=== PATIENT | female | born 1985 ===

== ENCOUNTER 2019-02-22 17:32 | Emergency (ER) | payer OTHER ==
[2019-02-22] MEDS ORDERED: Sodium Chloride 0.9% 1,000 ML IV STA (18:22)
--- NOTE | 2019-02-22 18:25 | ED PDOC ---
HPI: Abdomen Time Seen by Provider: 02/22/19 17:53 Chief Complaint (Nursing): Abdominal Pain Chief Complaint (Provider): Abdominal Pain History Per: Patient History/Exam Limitations: no limitations Onset/Duration Of Symptoms: Days Current Symptoms Are (Timing): Still Present Additional Complaint(s): 33 y/o female with no significant PMHx presents to the ED for evaluation of abdominal pain since yesterday. Patient reports pain starts in the lower abdomen and radiates up to the epigastric area. Patient states pain is associated with diarrhea and vomiting. Patient denies any changes in diet and urinary symptoms. Patient notes pain does not worsen with foods or spicy foods. PMD: Minerva Gastelum Past Medical History Reviewed: Historical Data, Nursing Documentation, Vital Signs Vital Signs: Last Vital Signs Temp 97.8 F 02/22/19 17:37 Pulse 65 02/22/19 17:37 Resp 20 02/22/19 17:37 BP 102/65 02/22/19 17:37 Pulse Ox 99 02/22/19 17:37 - Medical History PMH: No Chronic Diseases - Surgical History Surgical History: No Surg Hx - Family History Family History: States: Unknown Family Hx - Social History Current smoker - smoking cessation education provided: No Alcohol: None Drugs: Denies - Home Medications Home Medications: Ambulatory Orders Medication Instructions Recorded Famotidine [Pepcid] 20 mg PO Q12 #14 tab 02/23/19 - Allergies Allergies/Adverse Reactions: Allergies Allergy/AdvReac Type Severity Reaction Status Date / Time aspirin Allergy RASH Verified 02/22/19 17:37 Review of Systems ROS Statement: Except As Marked, All Systems Reviewed And Found Negative Gastrointestinal: Positive for: Vomiting, Abdominal Pain, Diarrhea Genitourinary Female: Negative for: Dysuria, Frequency, Hematuria Physical Exam - Reviewed Nursing Documentation Reviewed: Yes Vital Signs Reviewed: Yes - Physical Exam Appears: Positive for: No Acute Distress Head Exam: Positive for: ATRAUMATIC, NORMOCEPHALIC Skin: Positive for: Normal Color, Warm, Dry Eye Exam: Positive for: Normal appearance, EOMI, PERRL Neck: Positive for: Normal, Painless ROM Cardiovascular/Chest: Positive for: Regular Rate, Rhythm. Negative for: Murmur Respiratory: Positive for: Normal Breath Sounds. Negative for: Respiratory Distress Gastrointestinal/Abdominal: Positive for: Soft, Tenderness (Mild diffuse abdominal tenderness) Back: Positive for: Normal Inspection. Negative for: L CVA Tenderness, R CVA Tenderness, Vertebral Tenderness Extremity: Positive for: Normal ROM. Negative for: Pedal Edema, Deformity Neurological/Psych: Positive for: Awake, Alert, Oriented (x3). Negative for: M otor/Sensory Deficits - Laboratory Results Result Diagrams: 02/22/19 18:53 02/22/19 18:53 - ECG O2 Sat by Pulse Oximetry: 99 (RA) Pulse Ox Interpretation: Normal Medical Decision Making Medical Decision Making: Time: 1821 Impression: Abdominal Pain Plan: -- CMP -- Lipase -- CBC with Differentials -- Sodium Chloride IV 999 mls/hr -- Pepcid 20 mg IVP -- Urine Culture -- Urinalysis Time: 1899 -- Patient endorsed to Dr. Pan, pending ER workup, re-evaluation and final ER disposition. Scribe Attestation: Documented by Boo Davis, acting as a scribe for Fern Terry MD. Provider Scribe Attestation: All medical record entries made by the Scribe were at my direction and personally dictated by me. I have reviewed the chart and agree that the record accurately reflects my personal performance of the history, physical exam, medical decision making, and the department course for this patient. I have also personally directed, reviewed, and agree with the discharge instructions and disposition. Disposition - Clinical Impression Clinical Impression: Ovarian cyst - Patient ED Disposition Is Patient to be Admitted: Transfer of Care - Disposition [facility] Disposition: Transfer of Care Disposition Time: 19:00 Condition: STABLE Prescriptions: Famotidine [Pepcid] 20 mg PO Q12 #14 tab Instructions: Ovarian Cysts Forms: [employer] (Hebrew), [employer] ED School/Work Excuse Print Language: [place] Patient Signed Over To: Domenic Pan Handoff Comments: pending ER workup, re-evaluation and final ER disposition.
[2019-02-22] MEDS ORDERED: Iohexol 240 (50 ml) PO ONE (18:51)
[2019-02-22 18:58] LABS: BASO % 0.6 % (0.0-2.0); EOS # 0.1 K/uL (0.0-0.7); HEMOGLOBIN 10.7 g/dL (12.0-16.0); LYMPH # 2.2 K/uL (1.0-4.3); LYMPH % 32.2 % (20.0-40.0); MEAN CELL VOLUME 85.2 fl (81.0-99.0); MEAN CORPUSCULAR HEMOGLOBIN 28.3 pg (27.0-31.0); MEAN CORPUSCULAR HGB CONC 33.3 g/dL (33.0-37.0); MEAN PLATELET VOLUME 7.8 fl (7.2-11.7); MONO # 0.5 K/uL (0.0-0.8); MONO % 7.6 % (0.0-10.0); NEUT # 4.1 K/uL (1.8-7.0); NEUT % 58.6 % (50.0-75.0); NRBC % 0.1 % (0.0-0.0); RBC 3.77 Mil/uL (3.80-5.20); RED CELL DISTRIBUTION WIDTH 14.4 % (11.5-14.5)
[2019-02-22 19:06] LABS: SQUAMOUS EPITHIAL 3 /hpf (0-5); URINE BACTERIA RARE (<OCC); URINE BILIRUBIN NEGATIVE (NEGATIVE); URINE BLOOD LARGE (NEGATIVE); URINE COLOR YELLOW (YELLOW); URINE GLUCOSE (UA) NEG (NEGATIVE); URINE LEUKOCYTE ESTERASE NEG Leu/uL (Negative); URINE PROTEIN 30 mg/dL (NEGATIVE); URINE UROBILINOGEN 0.2-1.0 mg/dL (0.2-1.0)
[2019-02-22 19:07] LABS: URINE CLARITY SLIGHT-CLOUDY (Clear)
[2019-02-22 19:16] LABS: ALB/GLOB RATIO 1.2 (1.0-2.1); ALT/SGPT 20 U/L (9-52); AST/SGOT 18 U/L (14-36); BLOOD UREA NITROGEN 11 mg/dl (7-17); CALCIUM 8.5 mg/dL (8.4-10.2); GFR NON-AFRICAN AMERICAN > 60; LIPASE 130 U/L (23-300)
--- NOTE | 2019-02-22 19:26 | ED PDOC ---
- Laboratory Results Result Diagrams: 02/22/19 18:53 02/22/19 18:53 Lab Results: Total Bilirubin 0.4 mg/dl (0.2-1.3) 02/22/19 18:53 AST 18 U/L (14-36) 02/22/19 18:53 ALT 20 U/L (9-52) 02/22/19 18:53 Alkaline Phosphatase 42 U/L (38-126) 02/22/19 18:53 Total Protein 7.2 G/DL (6.3-8.2) 02/22/19 18:53 Albumin 4.0 g/dL (3.5-5.0) 02/22/19 18:53 Globulin 3.3 gm/dL (2.2-3.9) 02/22/19 18:53 Albumin/Globulin Ratio 1.2 (1.0-2.1) 02/22/19 18:53 Lipase 130 U/L (23-300) 02/22/19 18:53 Urine Color Yellow (YELLOW) 02/22/19 18:53 Urine Clarity Slight-cloudy (Clear) 02/22/19 18:53 Urine pH 6.0 (5.0-8.0) 02/22/19 18:53 Ur Specific [place] 1.024 (1.003-1.030) 02/22/19 18:53 Urine Protein 30 mg/dL (NEGATIVE) 02/22/19 18:53 Urine Glucose (UA) Neg mg/dL (NEGATIVE) 02/22/19 18:53 Urine Ketones Negative mg/dL (NEGATIVE) 02/22/19 18:53 Urine Blood Large (NEGATIVE) 02/22/19 18:53 Urine Nitrate Negative (NEGATIVE) 02/22/19 18:53 Urine Bilirubin Negative (NEGATIVE) 02/22/19 18:53 Urine Urobilinogen 0.2-1.0 mg/dL (0.2-1.0) 02/22/19 18:53 Ur Leukocyte Esterase Neg Hussain/uL (Negative) 02/22/19 18:53 Urine RBC (Auto) 9 /hpf (0-3) H 02/22/19 18:53 Urine Microscopic WBC 5 /hpf (0-5) 02/22/19 18:53 Ur Squamous Epith Cells 3 /hpf (0-5) 02/22/19 18:53 Urine Bacteria Rare (<OCC) 02/22/19 18:53 - ECG O2 Sat by Pulse Oximetry: 99 (RA) Pulse Ox Interpretation: Normal Medical Decision Making Medical Decision Making: Time: 1899 -- Patient endorsed to me by Dr. Terry, pending ER workup, reassessment and final ER disposition. 230 CT abdomen and pelvis with IV and PO contrast read and reviewed by radiologist FINDINGS: LUNG BASES: The lung bases appear clear. No pleural effusions are seen. LIVER: Unremarkable. GALLBLADDER AND BILE DUCTS: The gallbladder appears within normal limits. No radioopaque gallstones are seen. No biliary ductal dilatation is evident. PANCREAS: Unremarkable. SPLEEN: Unremarkable. ADRENAL GLANDS: Unremarkable. KIDNEYS, URETERS, AND BLADDER: The kidneys appear within normal limits. There is no hydronephrosis or hydroureter. No urinary calculi are seen. The urinary bladder appeared normal in size and configuration. STOMACH AND BOWEL: Unremarkable appearance of the stomach and bowel. No evidence of bowel obstruction. No evidence suggesting enteritis or colitis. APPENDIX: No evidence of acute appendicitis on CT examination. PERITONEUM: No free fluid. No free air. LYMPH NODES: No lymphadenopathy is evident. REPRODUCTIVE: A 3.9 x 2.5 cm ovoid shaped zone of decreased attenuation is seen in the left adnexal region thought likely compatible with an ovarian cyst. Consideration could be given to correlation with TV pelvic ultrasound for further characterization. Otherwise, unremarkable as visualized. VASCULATURE: No evidence of abdominal aortic aneurysm. BONES: No aggressive appearing osseous lesion. No acute osseous pathology evident. IMPRESSION: 1. No acute intra-abdominal or pelvic abnormality. 2. 3.9 x 2.5 cm left adnexal ovarian cyst. Consideration could be given to correlation with TV pelvic ultrasound for further characterization. 2344 US transvaginal ordered 020 US transvaginal read and reviewed by radiologist FINDINGS: ENDOMETRIUM: Endometrial stripe measures 0.5 - 0.6 cm. UTERUS/CERVIX: Uterus measures 7.9 x 4.0 x 5.2 cm and is anteverted. Cervix measures 3.4 cm in length and appears closed. RIGHT OVARY: Right ovary measures 3.9 x 1.7 x 1.5 cm. Right ovary demonstrates normal Doppler waveforms. LEFT OVARY: Left ovary measures 4.6 x 3.3 x 3.4 cm. Left ovary demonstrates normal Doppler waveforms. Left ovary demonstrates a mixed echogenicity lesion with cystic and apparently solid areas measuring 3.1 x 2.2 x 2.5 cm. The more echogenic portion of this lesion, on the images provided, appears to demonstrate at least some internal blood flow. Therefore, the possibility of solid neoplasm cannot be excluded. Other possibilities include endometrioma. In the case that the apparent internal blood flow is an artifact, this could also be hemorrhagic cyst. Options for further management include but are not limited to correlation with pelvic MRI and/or surgical management. Please correlate clinically. FREE FLUID: There is trace fluid in the cul de sac. IMPRESSION: 1. There is trace fluid in the cul de sac. 2. Left ovary demonstrates a mixed echogenicity lesion with cystic and apparently solid areas measuring 3.1 x 2.2 x 2.5 cm. The more echogenic portion of this lesion, on the images provided, appears to demonstrate at least some internal blood flow. Therefore, the possibility of solid neoplasm cannot be excluded. Other possibilities include endometrioma. In the case that the apparent internal blood flow is an artifact, this could also be hemorrhagic cyst. Options for further management include but are not limited to correlation with pelvic MRI and/or surgical management. Please correlate clinically. 2:15 Patient encouraged [facility] workup of ovarian cyst. Patient is stable for discharge. Scribe Attestation: Documented by Boo Davis, acting as a scribe Paulina Pan MD. Provider Scribe Attestation: All medical record entries made by the Scribe were at my direction and personally dictated by me. I have reviewed the chart and agree that the record accurately reflects my personal performance of the history, physical exam, medic al decision making, and the department course for this patient. I have also personally directed, reviewed, and agree with the discharge instructions and disposition. Documented by Cinda Salas, acting as a kamlesh Pan MD. Provider Scribe Attestation: All medical record entries made by the Scribe were at my direction and personally dictated by me. I have reviewed the chart and agree that the record accurately reflects my personal performance of the history, physical exam, medical decision making, and the department course for this patient. I have also personally directed, reviewed, and agree with the discharge instructions and disposition. Disposition - Clinical Impression Clinical Impression: Ovarian cyst - POA Present On Arrival: None - Disposition [facility]] Disposition: Routine/Home Disposition Time: 02:15 Condition: STABLE Prescriptions: Famotidine [Pepcid] 20 mg PO Q12 #14 tab Instructions: Ovarian Cysts Forms: [employer] (Sinhala), [facility] ED School/Work Excuse Print Language: BENGALI
[2019-02-22] MEDS ORDERED: Iohexol 240 (50 ml) ONE (19:35)
[2019-02-22] MEDS ORDERED: Iohexol 300 100 ML IJ ONE (22:14)
[2019-02-23 03:52] VITALS: BP 112/72; PULSE 64; RESP 16; TEMP 98.4
[2019-02-23 06:52] VITALS: O2SAT 99
--- NOTE | 2019-02-23 12:17 | CT ---
Date of service: 02/22/2019 PROCEDURE: CT Abdomen and Pelvis with contrast HISTORY: Diffuse abdominal pain. Negative test (concurrent with this examination). COMPARISON: February 23, 2019. Pelvic ultrasound. TECHNIQUE: Intravenous contrast dose: Radiation dose: Total exam DLP = <inf_radiation_dlp> mGy-cm. This CT exam was performed using one or more of the following dose reduction techniques: Automated exposure control, adjustment of the mA and/or kV according to patient size, and/or use of iterative reconstruction technique. FINDINGS: LOWER THORAX: Unremarkable. LIVER: Unremarkable. No gross lesion or ductal dilatation. GALLBLADDER AND BILE DUCTS: Unremarkable. PANCREAS: Unremarkable. No gross lesion or ductal dilatation. SPLEEN: Unremarkable. ADRENALS: Unremarkable. No mass. KIDNEYS AND URETERS: Unremarkable. No hydronephrosis. No solid mass. VASCULATURE: Unremarkable. No aortic aneurysm. No atherosclerotic calcification or mural plaque present. BOWEL: Constipation without fecal impaction or obstruction. APPENDIX: A normal appendix is visualized in it's entirety. PERITONEUM: Trace free fluid identified in the pelvis/cul de sac. No free air. LYMPH NODES: Unremarkable. No enlarged lymph nodes. BLADDER: Unremarkable. REPRODUCTIVE: Complex left adnexal mass partially cystic measures 2.5 x 3.3 cm. BONES: No acute fracture. OTHER FINDINGS: None. IMPRESSION: Complex, primarily cystic left adnexal mass. Adjacent trace fluid in the cul-de-sac. Additional benign and/or incidental findings described above. Concordant results (preliminary interpretation) provided by Violet Grey. Procedure Completed: :. Preliminary Report: Interpreted and electronically signed: 23:00. Final Interpretation: 12:13.
--- NOTE | 2019-02-23 13:50 | US ---
Date of service: 02/23/2019 HISTORY: left ov cyst on CT COMPARISON: None available. TECHNIQUE: Transabdominal and transvaginal FINDINGS: UTERUS: Measures 7.9 x 4.0 x 5.2 cm. No uterine mass. ENDOMETRIUM: Measures 5 mm in diameter. Unremarkable. CERVIX: No cervical abnormality identified. RIGHT OVARY: Measures 3.9 x 1.7 x 1.5 cm. No solid mass. Normal flow. LEFT OVARY: Measures 4.6 x 3.3 x 3.4 cm. No solid mass. Normal flow. Complex mass, partially cystic. There is apparent dependent debris with fluid/fluid level. However, there is questionable blood flow demonstrated within the echogenic internal portion of this complex mass. Cannot rule out neoplasm. Possible hemorrhagic cyst with artifactual flow. Recommend follow-up transvaginal pelvic ultrasound examination in 8-12 weeks. FREE FLUID: No significant free fluid noted. OTHER FINDINGS: None. IMPRESSION: Left ovarian neoplasm versus hemorrhagic cyst.. Recommend follow-up transvaginal pelvic ultrasound examination in 8-12 weeks.. No additional abnormality. The preliminary findings for this examination were reported by [facility] at 2:07 a.m. on 02/23/2019. There is concurrence of this report with the preliminary findings.
== END 2019-02-23 02:39 | disposition home or self-care (01) ==
LOC: H.ER 17:32
DX: N83.202 Unspecified ovarian cyst, left side (principal)
CPT/HCPCS: 74177; 76830; 80053; 81003; 81025; 83690; 85025; 87086; 96374; 99284; J7030; Q9966; Q9967